=== PATIENT | female | born 1950 | race Caucasian/White ===

== ENCOUNTER 2024-01-25 16:26 | Emergency (ER) | payer MEDICARE, MEDICAID, SELFPAY ==
[2024-01-25 16:52] VITALS: BP 172/93; PULSE 103; RESP 19; TEMP 36.9; O2SAT 98; BMI 32.3
--- NOTE | 2024-01-25 17:06 | PD.EDRME ---
Rapid Medical Screening Exam [facility] / [facility] Arrival date/time: 01/25/24 16:26 73-year-old female with past medical history of diverticulitis presents emergency department complaining of left lower quadrant pain and diarrhea with nausea and vomiting has been ongoing for several days. Chief Complaint: Nausea/Vomiting/Diarrhea Vital signs: Vital Signs Temperature 98.5 F 01/25/24 16:52 Pulse Rate 103 H 01/25/24 16:52 Respiratory Rate 19 01/25/24 16:52 Blood Pressure 172/93 H 01/25/24 16:52 Pulse Oximetry (%) 98 01/25/24 16:52 Oxygen Delivery Method Room Air 01/25/24 16:52
[2024-01-25] MEDS: ONDANSETRON ODT 4 MG TABRAP PO (17:11)
[2024-01-25] MEDS: HYDROcodone/APAP 5/325 TABLET 1 TAB PO (17:11)
[2024-01-25 17:30] LABS: Lactate (Lactic Acid) 1.7 mMol/L (0.4-2.0)
[2024-01-25 17:32] LABS: Basophils % (Auto) 0 % (0-2.5); Eosinophils # (Auto) 0.1 Thou/mm3 (0.0-0.5); Eosinophils % (Auto) 2 % (0-10); Hematocrit 38.6 % (36.0-46.0); Hemoglobin 14.1 g/dL (12.0-16.0); Immature Granulocytes % (Auto) 0 % (0-0); Immature Granulocytes Auto 0.02 Thou/mm3 (0.00-0.00); Lymphocytes # (Auto) 1.7 Thou/mm3 (1.0-4.8); Lymphocytes % (Auto) 20 % (10-50); Mean Corpuscular HGB Conc 36.5 g/dl (31.0-37.0); Mean Corpuscular Hemoglobin 32.3 pg (25.0-35.0); Mean Corpuscular Volume 88 fL (80-100); Monocytes # (Auto) 0.5 Thou/mm3 (0.0-0.8); Monocytes % (Auto) 5 % (0-12); Neutrophils # (Auto) 6.2 Thou/mm3 (1.8-7.7); Neutrophils % (Auto) 73 % (37-80); Nucleated Red Blood Cell % 0 /100 WBC (0); Platelet Count 253 Thou/mm3 (140-440); RDW Standard Deviation 50.4 fL (36.4-46.3); Red Blood Count 4.37 Miln/mm3 (4.00-5.20); White Blood Count 8.5 Thou/mm3 (3.6-11.0)
[2024-01-25 17:48] LABS: INR 1.1 (0.9-1.3); Partial Thromboplastin Time 24.6 Seconds (22.0-36.0); Prothrombin Time 11.5 Seconds (9.0-12.2)
[2024-01-25 18:01] LABS: Alanine Aminotransferase 45 U/L (10-49); Albumin, Serum 4.4 gm/dL (3.4-4.8); Albumin/Globulin Ratio 1.6 (1.2-2.2); Alkaline Phosphatase 117 U/L (46-116); Anion Gap 9 (7-16); Aspartate Amino Transferase 36 U/L (0-34); BUN/Creatinine Ratio 10 Ratio (12-20); Bilirubin,Total 0.8 mg/dL (0.3-1.2); Blood Urea Nitrogen 10 mg/dL (9-23); Calcium 9.6 mg/dL (8.3-10.6); Calcium (Corrected) 9.6 mg/dL (8.5-10.1); Carbon Dioxide 20.7 mMol/L (20.0-31.0); Chloride 106 mMol/L (98-107); Estimated Creatinine Clearance 43.5 mL/min (>60); Globulin 2.7 gm/dL (2.3-3.5); Glucose 119 mg/dL (74-106); Lipase 52 U/L (12-53); Osmolality,Calculated 271 (275-295); Potassium 3.6 mMol/L (3.4-5.1); Procalcitonin 0.09 ng/ml (0.0-0.49); Sodium 136 mMol/L (136-145); Total Protein 7.1 gm/dL (5.7-8.2); eGFR 59 See Note
[2024-01-25 19:07] LABS: Collection Type, Urine Clean Catch; RBC,Urine 0 /hpf (0-3)
[2024-01-25 19:26] LABS: Bacteria,Urine Rare; Bilirubin,Urine 1+ (Negative); Blood,Urine Negative (Negative); Clarity,Urine Clear (Clear/Hazy); Color,Urine Drk-Yellow (Lt Yel-Yel); Culture Indicated,Urine Not Indicated; Glucose, Urine Negative (Negative); Ketones,Urine 1+ (Negative); Leukocyte Esterase,Urine Positive (Negative); Nitrite,Urine Negative (Negative); PH,Urine 5.5 (5.0-7.0); Protein,Urine Trace (Neg - Trace); Specific Gravity,Urine 1.021 (1.001-1.035); Squamous Epithelial Cell,Urine 2 /hpf (0-5); Urobilinogen,Urine 12 mg/dL (0.0-1.0); WBC,Urine 2 /hpf (0-5)
[2024-01-25 20:42] VITALS: BP 148/88; PULSE 66; RESP 16; TEMP 36.5; O2SAT 99
--- NOTE | 2024-01-25 20:52 | EDNOTE_ITS ---
ED General RME/HPI General Chief complaint: Nausea/Vomiting/Diarrhea Stated complaint: SEVERE CRAMPING, N/D, ACUTE DIVERTICULITIS Time Seen by Provider: 01/25/24 18:04 Arrival date/time: 01/25/24 16:26 CC: Lower abdominal cramping HPI onset approximately 12:00, subsided approximately 1600. The patient is very anxious regarding this as she was recently discharged from this hospital with diverticulitis. Patient denies fever chills shortness of breath difficulty breathing. States what helps her calm down his lorazepam. Patient has no other complaints currently she is pain- free. RME / HPI RME / HPI narrative: 01/25/24 16:26 73-year-old female with past medical history of diverticulitis presents emergency department complaining of left lower quadrant pain and diarrhea with nausea and vomiting has been ongoing for several days. Related Data Home Medications ?Medication ?Instructions ?Recorded ?Confirmed lorazepam 1 mg tablet 1 mg PO [id number] PRN ANXIETY ##0 02/08/13 09/03/17 ibuprofen 200 mg tablet (IBU-200) 200 mg PO Q6H PRN Pain 01/11/24 01/11/24 omeprazole 20 mg capsule,delayed 20 mg PO QDAY 01/11/24 01/11/24 release Previous Rx's ?Medication ?Instructions ?Recorded ondansetron 4 mg disintegrating 4 mg PO Q6H PRN nausea and 09/03/17 tablet (Zofran ODT) vomiting #20 tabs dicyclomine 20 mg tablet 20 mg PO BID #10 tabs 01/25/24 Allergies Allergy/AdvReac Type Severity Reaction Status Date / Time No Known Allergies Allergy Verified 01/25/24 16:29 Review of Systems Review of Systems Narrative Review of Systems: GEN: No fever, no chills, no weight loss EYES: No discharge, no visual changes, no pain HEENT: No ear pain, no congestion, no sore throat PULM: No shortness of breath, no cough, no congestion CV: No chest pain, no dyspnea on exertion, no palpitations GI: No nausea, no vomiting, no diarrhea, no pain, no constipation,+ abdominal cramp : No frequency, no urgency, no dysuria MUSC/SKEL: No joint pain, no back pain SKIN: No rash PSYCH: No hallucinations, no depression HEME/LYMPH: No easy bleeding or bruising tendencies NEURO: No weakness, no headache Past Medical History Past Medical History CARDIAC: Negative Cardiac Disorders, Congestive Heart Failure or Hypertension RESPIRATORY: Negative Chronic Obstructive Pulmonary Disease (COPD) or Asthma GASTROINTESTINAL: Positive Diverticulitis GENITOURINARY: Negative Renal Disease ENDOCRINE: Negative Diabetes Mellitus Type 1 or Diabetes Mellitus Type 2 HEMATOLOGIC: Negative Sickle Cell Disease PSYCHO/SOCIAL: Positive Anxiety Surgical History SURGICAL: Positive Hysterectomy; Negative Cardiac Surgery Social History SMOKING STATUS: Never smoker ED Exam Narrative Physical exam: [General: Anxious but not in any acute distress Head normocephalic HEENT: Within acceptable limits Neck is supple nontender Chest equal chest rise nontender to palpation Respiratory: Clear to auscultation no wheezes crackles or rubs CV: Rate rhythm is regular no murmurs rubs or clicks Abdomen is distended secondary to body habitus soft nontender no masses positive bowel sounds all 4 quadrants Back: No CVA tenderness no spinous process tenderness from cervical spine thoracic and lumbar spine Skin: Intact no petechiae rash induration ulceration or crepitus Extremities: Moving all extremity against resistance cap refill less than 2 seconds neurosensory intact Neuro: Awake alert oriented x3 Glascow coma 15 no focal deficits] Course Quality Measures none Orders Category Date Time Status Blood Culture (Lab) Stat Lab 01/25/24 17:00 Received CBC Stat Lab 01/25/24 17:00 Completed Comprehensive Metabolic Panel Stat Lab 01/25/24 17:00 Completed Lactate (Lactic Acid) Stat Lab 01/25/24 17:00 Completed Lipase Stat Lab 01/25/24 17:00 Completed Magnesium Stat Lab 01/25/24 17:00 Completed Partial Thromboplastin Time Stat Lab 01/25/24 17:00 Completed Procalcitonin Stat Lab 01/25/24 17:00 Completed Prothrombin Time with INR Stat Lab 01/25/24 17:00 Completed Urinalysis, C/S if Indicated Stat Lab 01/25/24 19:00 Completed HYDROcodone*/APAP 5/325 [[place] 5/325] Med 01/25/24 17:05 Discontinued 1 tab PO X1 ONE Ondansetron Odt [Zofran Odt] Med 01/25/24 17:05 Discontinued 4 mg PO X1 ONE Vital Signs Vital signs: Vital Signs Temperature 98.5 F 01/25/24 16:52 Pulse Rate 103 H 01/25/24 16:52 Respiratory Rate 19 01/25/24 16:52 Blood Pressure 172/93 H 01/25/24 16:52 Pulse Oximetry (%) 98 01/25/24 16:52 Oxygen Delivery Method Room Air 01/25/24 16:[address] [facility] Patient data External records reviewed:: [facility] previous records Clinical information provided by:: patient Social determinants that could affect healthcare access:: none Patient has the following chronic illnesses:: Recent diagnosis diverticulitis How is presenting disease/condition affected by chronic disease/condition?: u neffected by Evaluation data The following diagnostics were reviewed and interpreted by me:: lab results Lab and/or radiology exams considered but not ordered:: CBC shows no acute leukocytosis anemia thrombocytopenia CMP shows no acute electrolyte imbalances renal impairment transaminitis is her T. bili elevation. Urine is negative Interpretation Summary: I suspect the patient is more anxious than anything else as the cramping is dissipated the patient also admits that she has advanced from bland diet to harder foods over the past 24 that may have triggered it. At this time there is no acute finding that requires her medical intervention patient would be discharged home. Medications Medications considered but not ordered:: None Medication administrations:: Medication Administration History Discontinued Medications Hydrocodone Bitart/Acetaminophen (Hydrocodone/Apap 5/325 Tablet) 1 tab PO X1 ONE Stop: 01/25/24 17:06 Last Admin: 01/25/24 17:11 Dose: 1 tab Documented By: Ondansetron HCl (Ondansetron Odt 4 Mg Tabrap) 4 mg PO X1 ONE; Protocol Stop: 01/25/24 17:06 Last Admin: 01/25/24 17:11 Dose: 4 mg Documented By: None Consultations Consultation(s) initiated? (list below): No Diagnosis Differential Diagnosis ED Complaint MDM: Diverticulitis diverticulosis abdominal cramping Most likely diagnosis given after review of the tests above:: Abdominal cramping Admission Indicated Admission indicated?: not indicated Explain why admission is indicated or not indicated:: Stable for discharge Admission Request Was there a request for admission?: No Disposition Plan Disposition Plan: Discharge Discharge Attestation Discharge Attestation: The patient and all family members were given an opportunity to ask questions and understood the discharge instructions. Discharge instructions specifically effects, indications for sooner follow up or return to the emergency department, and the expected course of current diagnosis. Patient condition: Stable Medical Decision Making Differential Diagnosis Differential Diagnosis: Diverticulitis diverticulosis abdominal cramping Lab Data 01/25/24 17:00 01/25/24 17:00 Labs: Lab Results 01/25/24 01/25/24 Range/Units 17:00 19:00 WBC 8.5 (3.6-11.0) Thou/mm3 RBC 4.37 (4.00-5.20) Miln/mm3 Hgb 14.1 (12.0-16.0) g/dL Hct 38.6 (36.0-46.0) % MCV 88 (80-100) fL MCH 32.3 (25.0-35.0) pg MCHC 36.5 (31.0-37.0) g/dl RDW Std Deviation 50.4 H (36.4-46.3) fL Plt Count 253 D (140-440) Thou/mm3 Neut % (Auto) 73 (37-80) % Lymph % (Auto) 20 (10-50) % Dawson % (Auto) 5 (0-12) % Eos % (Auto) 2 (0-10) % Baso % (Auto) 0 (0-2.5) % Neut # (Auto) 6.2 (1.8-7.7) Thou/mm3 Lymph # (Auto) 1.7 (1.0-4.8) Thou/mm3 Dawson # (Auto) 0.5 (0.0-0.8) Thou/mm3 Eos # (Auto) 0.1 (0.0-0.5) Thou/mm3 Baso # (Auto) 0.0 (0.0-0.2) Thou/mm3 Immature Gran # (Auto) 0.02 H (0.00-0.00) Thou/mm3 Absolute Nucleated RBC 0.00 (0.00-0.00) Thou/mm3 Immature Gran % 0 (0-0) % Nucleated RBC % 0 (0) /100 WBC PT 11.5 (9.0-12.2) Seconds INR 1.1 (0.9-1.3) APTT 24.6 (22.0-36.0) Seconds Sodium 136 (136-145) mMol/L Potassium 3.6 (3.4-5.1) mMol/L Chloride 106 (98-107) mMol/L Carbon Dioxide 20.7 (20.0-31.0) mMol/L Anion Gap 9 (7-16) BUN 10 (9-23) mg/dL Creatinine 1.0 (0.6-1.3) mg/dL Estim Creat Clear Calc 43.5 L (>60) mL/min eGFR 59 L (60 - ) See Note BUN/Creatinine Ratio 10 L (12-20) Ratio Glucose 119 H (74-106) mg/dL Calculated Osmolality 271 L (275-295) Lactic Acid 1.7 (0.4-2.0) mMol/L Calcium 9.6 (8.3-10.6) mg/dL Corrected Calcium 9.6 (8.5-10.1) mg/dL Magnesium 2.0 (1.6-2.6) mg/dL Total Bilirubin 0.8 (0.3-1.2) mg/dL AST 36 H (0-34) U/L ALT 45 (10-49) U/L Alkaline Phosphatase 117 H (46-116) U/L Total Protein 7.1 (5.7-8.2) gm/dL Albumin 4.4 (3.4-4.8) gm/dL Globulin 2.7 (2.3-3.5) gm/dL Albumin/Globulin Ratio 1.6 (1.2-2.2) Lipase 52 (12-53) U/L Procalcitonin 0.09 (0.0-0.49) ng/ml Ur Collection Type Clean Catch Urine Color Drk-Yellow A (Lt Yel-Yel) Urine Clarity Clear (Clear/Hazy) Urine pH 5.5 (5.0-7.0) Ur Specific [place] 1.021 (1.001-1.035) Urine Protein Trace (Neg - Trace) Urine Glucose (UA) Negative (Negative) Urine Ketones 1+ A (Negative) Urine Blood Negative (Negative) Urine Nitrite Negative (Negative) Urine Bilirubin 1+ A (Negative) Urine Urobilinogen (Auto) 12 (0.0-1.0) mg/dL Ur Leukocyte Esterase Positive (Negative) Urine RBC 0 (0-3) /hpf Urine WBC 2 (0-5) /hpf Ur Squamous Epith Cells 2 (0-5) /hpf Urine Bacteria Rare (None) Ur Culture Indicated? Not Indicated Discharge Plan Plan Patient Disposition: HOME (Self Care) Patient condition on transfer: Stable Prescriptions/Referrals Prescriptions/Med Rec: New dicyclomine 20 mg tablet 20 mg PO BID Qty: 10 0RF No Action lorazepam 1 MG tablet 1 mg PO [id number] PRN (Reason: ANXIETY) Qty: 0 ondansetron [Zofran ODT] 4 mg tablet,disintegrating 4 mg PO Q6H PRN (Reason: nausea and vomiting) Qty: 20 0RF omeprazole 20 mg Capsule,Delayed Release(Dr/Ec) 20 mg PO QDAY ibuprofen [IBU-200] 200 mg Tablet 200 mg PO Q6H PRN (Reason: Pain) Referrals: Mushtaq Knight MD [Primary Care Provider] - In 1 week Problem List Clinical Impression: Anxiety, Abdominal cramping Patient/Caregiver Discharge Instructions Education Materials: Abdominal Pain Additional Instructions: Take the medication for the next 2 to 3 days if there is no change in cramping discontinue the medication and follow-up with your primary care provider. Print Language: [place] Stand Alone Forms: Anisha Award Info., Patient Portal Info Letter, Work/School Release PA/EMERGENCY DEPARTMENT Supervising Physician PA/EMERGENCY DEPARTMENT Supervising Physician: Marcos Dwyer ENP
[2024-01-25 21:11] VITALS: BP 148/88; PULSE 71; RESP 18; O2SAT 99
== END 2024-01-25 21:12 | disposition home or self-care (01) ==
PROVIDERS: Emergency Provider Emergency Medicine; PCP Family Medicine
DX: F41.9 Anxiety disorder, unspecified (principal); R10.30 Lower abdominal pain, unspecified
CPT/HCPCS: 36415; 80053; 81001; 83605; 83690; 83735; 84145; 85025; 85610; 85730; 87040; 99283; Q0162; A9270